=== PATIENT | male | born 1985 | race Caucasian/White ===

== ENCOUNTER 2021-07-14 18:45 | Emergency (ER) | payer BC, OTHER ==
--- NOTE | 2021-07-14 19:25 | EDM.PDOC ---
ED HPI GENERAL MEDICAL PROBLEM - General Chief Complaint: General Stated Complaint: COVID+ Time Seen by Provider: 07/14/21 19:12 Source of Information: Reports: Patient History Limitations: Reports: No Limitations - History of Present Illness INITIAL COMMENTS - FREE TEXT/NARRATIVE: The patient presents with a cough, fever, chills, body aches and loss of sense of smell and taste. This has been going on for about 3 days. 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 He has no medical problems such as asthma, COPD, heart disease or hypertension. He does not smoke. Onset: Gradual Duration: Day(s): (3) Location: Reports: Generalized Quality: Reports: Ache Severity: Mild Improves with: Reports: None Worsens with: Reports: None Associated Symptoms: Reports: Cough, Fever/Chills. Denies: Chest Pain, Headaches, Nausea/Vomiting, Shortness of Breath - Related Data Allergies Allergy/AdvReac Type Severity Reaction Status Date / Time [facility]ef[facility]lor [facility] Allergy Severe Rash Verified 07/14/21 18:57 Home Meds: Home Meds . [No Known Home Meds] 07/14/21 [History] Past Medical History - Past Surgical History GI Surgical History: Reports: Hernia Repair/Other Social & Family History - Caffeine Use Caffeine Use: Reports: Coffee - Recreational Drug Use Recreational Drug Use: No ED ROS GENERAL - Review of Systems Review Of Systems: See Below Constitutional: Reports: Fever, Chills, Malaise, Weakness, Fatigue HEENT: Reports: No Symptoms Respiratory: Reports: Cough. Denies: Shortness of Breath Cardiovascular: Reports: No Symptoms Endocrine: Reports: Fatigue GI/Abdominal: Reports: No Symptoms : Reports: No Symptoms Musculoskeletal: Reports: Muscle Pain ED EXAM, GENERAL - Physical Exam Exam: See Below Exam Limited By: No Limitations General Appearance: Alert, No Apparent Distress Ears: Normal External Exam Nose: Normal Inspection Head: Atraumatic, Normocephalic Neck: Normal Inspection Respiratory/Chest: No Respiratory Distress, Lungs Clear, Normal Breath Sounds Cardiovascular: Regular Rate, Rhythm, No Edema, No Murmur GI/Abdominal: Soft, Non-Tender, No Organomegaly, No Mass Back Exam: Normal Inspection Extremities: Normal Inspection Neurological: Alert, Oriented, No Motor/Sensory Deficits Course - Vital Signs Last Recorded V/S: Last Vital Signs Temp 97.6 F 07/14/21 18:56 Pulse 63 07/14/21 18:56 Resp 16 07/14/21 18:56 BP 131/95 H 07/14/21 18:56 Pulse Ox 99 07/14/21 18:56 - Orders/Labs/Meds Labs: Laboratory Tests 07/14/21 Range/Units 19:01 SARS-CoV-2 RNA ([facility]) Positive H (NEGATIVE) - Re-Assessments/Exams Free Text/Narrative Re-Assessment/Exam: 07/14/21 19:28 I have ordered a COVID swab. His lungs sound good and his oxygen saturations are at 99%. I will discharge him home and call him the results. Departure - Departure Time of Disposition: 19:30 Disposition: Home, Self-Care 01 Condition: Good Clinical Impression: Viral URI with cough, COVID-19 - Discharge Information *PRESCRIPTION DRUG MONITORING PROGRAM REVIEWED*: Not Applicable *COPY OF PRESCRIPTION DRUG MONITORING REPORT IN PATIENT [facility]: Not Applicable Instructions: Upper Respiratory Infection, Adult, [id number] Forms: ED Department Discharge Additional Instructions: I will call you the COVID results. Take tylenol or motrin for any fever or pain. Drink plenty of fluids. If this is COVID quarantine for 10 days of symptom onset. Isolate yourself to a couple rooms in your house if you live with other people. Mask and have them mask if you have to be in the same room to reduce infecting the other person. Please return if you are worse. Sepsis Event Note (ED) - Evaluation Sepsis Screening Result: No Definite Risk - Focused Exam Vital Signs: Vital Signs Temp Pulse Resp BP Pulse Ox 07/14/21 18:56 97.6 F 63 16 131/95 H 99
== END 2021-07-14 19:43 | disposition home or self-care (01) ==
LOC: JD.ED 18:45
DX: U07.1 COVID-19 (principal); J06.9 Acute upper respiratory infection, unspecified; Z88.8 Allergy status to other drugs, medicaments and biological substances
CPT/HCPCS: 99283; U0002

== ENCOUNTER 2022-10-17 13:01 | Emergency (ER) | payer BC, OTHER ==
[2022-10-17] MEDS ORDERED: Morphine 4 MG/ML Syringe IVPUSH ONE (13:49)
[2022-10-17] MEDS ORDERED: Sodium Chloride 0.9% 10 ML Syringe FLUSH PRN (13:49)
== END 2022-10-17 16:00 | disposition other institution (70) ==
LOC: JD.ED 13:01
DX: S82.252A Displaced comminuted fracture of shaft of left tibia, initial encounter for closed fracture (principal); Z88.1 Allergy status to other antibiotic agents; W22.09XA Striking against other stationary object, initial encounter
CPT/HCPCS: 29505; 73562-26-LT; 73562-LT; 73590-26-LT; 73590-LT; 99283